=== PATIENT | male | born 1985 ===

== ENCOUNTER 2018-12-21 09:03 | Emergency (ER) | payer OTHER ==
[2018-12-21 10:02] VITALS: BP 125/83
[2018-12-21] MEDS ORDERED: Ketorolac INJ* 60 MG/2 ML VIAL IM ONE (11:20)
--- NOTE | 2018-12-21 11:32 | UC ---
Back Pain HPI - HPI Summary HPI Summary: 33-year-old male comes in with chief complaint of low back pain. Yesterday he was shoveling and he had a sudden onset of low back pain. It's in the middle of his back the lumbar area. It does not radiate down his legs he has no weakness numbness no difficulty controlling urine or bowels. Pain is worse with twisting turning bending. Ibuprofen helps some with the pain. No prior history of back problems. - History of Current Complaint Chief Complaint: UCBackPain Stated Complaint: BACK PAIN Time Seen by Provider: 12/21/18 11:11 Pain Intensity: 9 - Allergies/Home Medications Allergies/Adverse Reactions: Allergies Allergy/AdvReac Type Severity Reaction Status Date / Time Penicillins Allergy Numbness Verified 12/21/18 09:54 And Tingling Home Medications: Home Medications Ibuprofen 400 mg PO PRN 12/21/18 [History] PMH/Surg Hx/FS Hx/Imm Hx Previously Healthy: Yes - Surgical History Surgical History: Yes Surgery Procedure, Year, and Place: cyst removed from back 7-8 years ago - Family History Known Family History: Positive: Non-Contributory - Social History Alcohol Use: Rare Substance Use Type: None Smoking Status (MU): Never Smoked Tobacco - Immunization History Most Recent Tetanus Shot: UTD Review of Systems All Other Systems Reviewed And Are Negative: Yes Constitutional: Positive: Negative Skin: Positive: Negative Eyes: Positive: Negative ENT: Positive: Negative Respiratory: Positive: Negative Cardiovascular: Positive: Negative Gastrointestinal: Positive: Negative Genitourinary: Positive: Negative Motor: Positive: Negative Neurovascular: Positive: Negative Musculoskeletal: Positive: Other: - SEE HPI Neurological: Positive: Negative Psychological: Positive: Negative Is Patient Immunocompromised?: No Physical Exam Triage Information Reviewed: Yes Appearance: Well-Appearing, Well-Nourished, Pain Distress - WITH BACK MOVEMENT Vital Signs: Initial Vital Signs Temp 98.1 F 12/21/18 09:57 Pulse 80 12/21/18 09:57 Resp 19 12/21/18 09:57 BP 125/83 12/21/18 09:57 Pulse Ox 96 12/21/18 09:57 Vital Signs Reviewed: Yes Eye Exam: Normal Eyes: Positive: Conjunctiva Clear Neck exam: Normal Neck: Positive: Supple Respiratory: Positive: No respiratory distress Musculoskeletal: Positive: Other: - Tender to palpation midline lower lumbar spine. No tenderness down into the buttocks. Legs have full range of motion and full strength. With movement of the legs he does get increased pain in the back. No sensation deficits. Neurological Exam: Normal Neurological: Positive: Alert, Muscle Tone Normal Psychological Exam: Normal Psychological: Positive: Normal Response To Family, Age Appropriate Behavior Skin Exam: Normal Back Pain Course/Dx - Differential Dx/Diagnosis Provider Diagnosis: Low back pain Discharge - Sign-Out/Discharge Documenting (check all that apply): Patient Departure All imaging exams completed and their final reports reviewed: No Studies - Discharge Plan Condition: Stable Disposition: HOME Prescriptions: Cyclobenzaprine TAB* [Flexeril 10 MG TAB*] 10 mg PO TID PRN #15 tab MDD 3 PRN Reason: Pain Patient Education Materials: Low Back Strain (ED), Lower Back Exercises (ED) Referrals: Braden Osorio MD [Primary Care Provider] - Additional Instructions: FOLLOW UP WITH YOUR DOCTOR IF NOT COMPLETELY IMPROVED. TAKE IBUPROFEN 600MG EVERY 6 HOURS NEEDED. GET RECHECKED FOR ANY WORSENING OF YOUR CONDITION; PAIN, WEAKNESS, NUMBNESS, DIFFICULTY CONTROLLING BOWEL OR BLADDER OR QUESTIONS OR CONCERNS. - Billing Disposition and Condition Condition: STABLE Disposition: Home
== END 2018-12-21 11:58 | disposition home or self-care (01) ==
LOC: UCEAST 09:03
DX: M54.5 Low back pain (principal); Z88.0 Allergy status to penicillin
CPT/HCPCS: 96372; 99211; G0463; J1885